=== PATIENT | female | born 1955 | race Caucasian/White ===

== ENCOUNTER 2020-06-10 08:51 | Outpatient (CLI) | payer MEDICARE, OTHER, SELFPAY ==
[2020-06-10 18:42] LABS: SARS-CoV-2 RNA PCR Negative
== END 2020-06-10 08:52 | disposition home or self-care (01) ==
LOC: ANHCOVIDDT 08:51
PROVIDERS: Visit Provider Internal Medicine Gastroenterology
DX: Z01.812 Encounter for preprocedural laboratory examination (principal); Z20.828 Contact with and (suspected) exposure to other viral communicable diseases
CPT/HCPCS: 87635; C9803; U0003

== ENCOUNTER 2020-06-12 01:11 | Day surgery (SDC) | payer MEDICARE, OTHER, SELFPAY ==
[2020-06-04 16:09] VITALS: BMI 21.2
[2020-06-12 08:42] VITALS: BP 116/74; PULSE 68; RESP 16; TEMP 36.6; O2SAT 99; BMI 20.9
--- NOTE | 2020-06-12 08:49 | PM.HPGS ---
History of Present Illness History of Present Illness Consent: Risks, benefits, and alternatives have been discussed and questions answered. Patient agrees to proceed with procedure. Chief complaint: Neoplasm Screening Narrative: Briana Diaz is a 65 year old female for screening colonoscopy [facility] Family History Family History (Updated 06/12/20 @ 08:49 by Christofer Krishnan MD) Mother Carcinoma of colon Meds Home Medications and Allergies Home Medications Medication Instructions Recorded Confirmed Type alendronate 10 mg PO DAILY 06/04/20 06/04/20 History ascorbic acid (vitamin C) 1,000 mg PO DAILY 06/04/20 06/04/20 History aspirin [Adult Low Dose Aspirin] 81 mg PO DAILY 06/04/20 06/04/20 History calcium carbonate 1,200 mg PO DAILY 06/04/20 06/04/20 History cholecalciferol (vitamin D3) 25 mcg PO DAILY 06/04/20 06/04/20 History [Vitamin D3] clobetasol 1 applic TOPICAL 2XW 06/04/20 06/04/20 History cranberry 400 mg PO DAILY 06/04/20 06/04/20 History estradiol 10 mcg VAGINAL 2XW 06/04/20 06/04/20 History famotidine 20 mg PO BID 06/04/20 06/04/20 History flaxseed oil 1,000 mg PO TID 06/04/20 06/04/20 History zurpbjzu-lwv-MV-lycopen-lutein 1 tablet PO DAILY 06/04/20 06/04/20 History [Adults 50 plus] omega 8-tnh-kae-fish oil [Fish Oil] 1,200 cap PO DAILY 06/04/20 06/04/20 History sertraline 25 mg PO DAILY 06/04/20 06/04/20 History sertraline 50 mg PO DAILY 06/04/20 06/04/20 History simvastatin 40 mg PO DAILY 06/04/20 06/04/20 History Allergies Allergy/AdvReac Type Severity Reaction Status Date / Time No Known Allergies Allergy Verified 06/12/20 08:42 Vital Signs Vital Signs - 24 hr 06/12/20 08:42 Temperature 36.6 C Pulse Rate 68 Respiratory Rate 16 Blood Pressure 116/74 Pulse Oximetry 99 Exam Resp: Auscultation: clear to auscultation bilaterally Cardio: Rate: regular rate Rhythm: regular rhythm GI: GI Palp: Yes Soft to palpation and No Tenderness to palpation present (GI) Assessment and Plan Assessment and plan (1) Colon cancer screening: Code(s): Z12.11 - Encounter for screening for malignant neoplasm of colon Status: Acute Assessment and Plan: Colonoscopy with possible biopsy or polypectomy or cautery or injection of substances.
[2020-06-12] MEDS: LACTATED RINGERS 1,000 ML 150 ML IV CONT (09:00)
--- NOTE | 2020-06-12 09:16 | WPDANESEPPF ---
Anes - Initial Pre Proc Eval Procedure: Operation Date: 06/12/20 09:30 Proposed Procedures p Screening Colonoscopy - Christofer Krishnan MD Date/Time: 06/12/20 09:16 Surgeon: Christofer Krishnan MD Pre Op Diagnosis: Neoplasm Screening Patient Data Age: 65 Gender: F Height: 5 ft 2 in Weight: 51.9 kg Last Vital Signs Temp 97.9 F 06/12/20 08:42 Pulse 68 06/12/20 08:42 Resp 16 06/12/20 08:42 BP 116/74 06/12/20 08:42 Pulse Ox 99 06/12/20 08:42 Allergies Allergy/AdvReac Type Severity Reaction Status Date / Time No Known Allergies Allergy Verified 06/12/20 08:42 Home Medications Medication Instructions Recorded Confirmed Type alendronate 10 mg PO DAILY 06/04/20 06/04/20 History ascorbic acid (vitamin C) 1,000 mg PO DAILY 06/04/20 06/04/20 History aspirin [Adult Low Dose Aspirin] 81 mg PO DAILY 06/04/20 06/04/20 History calcium carbonate 1,200 mg PO DAILY 06/04/20 06/04/20 History cholecalciferol (vitamin D3) 25 mcg PO DAILY 06/04/20 06/04/20 History [Vitamin D3] clobetasol 1 applic TOPICAL 2XW 06/04/20 06/04/20 History cranberry 400 mg PO DAILY 06/04/20 06/04/20 History estradiol 10 mcg VAGINAL 2XW 06/04/20 06/04/20 History famotidine 20 mg PO BID 06/04/20 06/04/20 History flaxseed oil 1,000 mg PO TID 06/04/20 06/04/20 History khyfwdur-yxd-FY-lycopen-lutein 1 tablet PO DAILY 06/04/20 06/04/20 History [Adults 50 plus] omega 2-mqk-vmu-fish oil [Fish Oil] 1,200 cap PO DAILY 06/04/20 06/04/20 History sertraline 25 mg PO DAILY 06/04/20 06/04/20 History sertraline 50 mg PO DAILY 06/04/20 06/04/20 History simvastatin 40 mg PO DAILY 06/04/20 06/04/20 History Patient hx anesthesia problems: none Family hx anesthesia problems: none PMFSH Past Medical History Medical History (Updated 06/12/20 @ 09:16 by Yadiel Hogan MD) Anxiety GERD (gastroesophageal reflux disease) Hyperlipidemia Family History Family History (Updated 06/12/20 @ 08:49 by Christofer Krishnan MD) Mother Carcinoma of colon Anes - Eval Final PreProcedure Day of Procedure 06/12/20 09:16 Patient weight: normal Heart: regular rate and rhythm Lungs: clear to auscultation Airway: Mallampati scale class II Neurological: alert and oriented Last oral intake: >/= 8 hours ASA classification: II Emergent: no Anesthetic plan: proceed Anesthesia type and monitoring: general GIVS and standard monitoring Informed Consent: The patient's anesthetic plan and its attendant risks and benefits were discussed with the patient/family/POA. Questions were solicited and answers provided to the satisfaction of the patient/family/POA.
[2020-06-12 09:42] VITALS: BP 98/70; PULSE 66; RESP 18; O2SAT 100
[2020-06-12 09:52] VITALS: BP 117/82; PULSE 64; RESP 22; O2SAT 100
[2020-06-12 10:02] VITALS: BP 121/82; PULSE 56; RESP 21; O2SAT 100
== END 2020-06-12 10:18 | disposition home or self-care (01) ==
PROVIDERS: PCP Family Medicine; Visit Provider Internal Medicine Gastroenterology
PROC: 0DJD8ZZ Inspection of Lower Intestinal Tract, Via Natural or Artificial Opening Endoscopic (ICD-10-PCS; CPT 45378; principal; 2020-06-12 09:30)
DX: Z12.11 Encounter for screening for malignant neoplasm of colon (principal); Z80.0 Family history of malignant neoplasm of digestive organs; K21.9 Gastro-esophageal reflux disease without esophagitis; E78.5 Hyperlipidemia, unspecified; F41.9 Anxiety disorder, unspecified; Z79.82 Long term (current) use of aspirin; Z79.899 Other long term (current) drug therapy
CPT/HCPCS: G0105; J2704; J7120